=== PATIENT | female | born 1985 | race American Indian/Alaskan Native ===

== ENCOUNTER 2018-12-12 09:42 | Inpatient (IN) | payer MEDICAID ==
[2018-12-12 12:32] LABS: Basophils % (Auto) 0.2 % (0.0-1.8); Eosinophils % (Auto) 0.6 % (0.0-4.3); Hematocrit 32.9 % (30.3-42.9); Lymphocytes # (Auto) 1.7 K/mm3 (1.2-5.4); Lymphocytes % (Auto) 23.5 % (13.4-35.0); Mean Corpuscular HGB Conc 34 % (30-34); Mean Corpuscular Volume 84 fl (79-97); Monocytes # (Auto) 0.5 K/mm3 (0.0-0.8); Monocytes % (Auto) 6.5 % (0.0-7.3); Platelet Count 225 K/mm3 (140-440); Red Blood Count 3.92 M/mm3 (3.65-5.03); Red Cell Distribution Width 15.2 % (13.2-15.2)
[2018-12-12] MEDS ORDERED: LACTATED RINGERS 1,000 ML ONE (12:32)
[2018-12-12] MEDS ORDERED: NARCAN 2 MG/2 ML IV PRN (13:14)
--- NOTE | 2018-12-12 13:17 | Anesthesia Consultation ---
Anesthesia Consult and Med Hx - Airway Anesthetic Teeth Evaluation: Good ROM Head & Neck: Adequate Mental/Hyoid Distance: Adequate Mallampati Class: Class II Intubation Access Assessment: Probably Good - Pulmonary Exam CTA: Yes - Cardiac Exam Cardiac Exam: RRR - Pre-Operative Health Status ASA Pre-Surgery Classification: ASA2 Proposed Anesthetic Plan: Epidural - Pulmonary Hx Smoking: No Hx Asthma: Yes Hx Respiratory Symptoms: Yes SOB: Yes COPD: No Home Oxygen Therapy: No Hx Pneumonia: No Hx Sleep Apnea: No - Cardiovascular System Hx Hypertension: No - Central Nervous System Hx Seizures: No Hx Psychiatric Problems: No - Endocrine Hx Renal Disease: No Hx Hypothyroidism: No Hx Hyperthyroidism: No - Hematic Hx Anemia: No Hx Sickle Cell Disease: No - Other Systems Hx Alcohol Use: No
--- NOTE | 2018-12-12 13:18 | Anesthesia Day of Surgery ---
Anesthesia Day of Surgery - Day of Surgery Patient Examined: Yes Patient H&P Reviewed: Yes Patient is NPO: Yes Beta Blockers: No Cardiac Clearance: No Pulmonary Clearance: No Ahmet's Test: N/A
[2018-12-12] MEDS ORDERED: LACTATED RINGERS 2,000 ML ONE (13:26)
[2018-12-12] MEDS ORDERED: fentaNYL-BUPIV 2 MCG/ML-0.125% 200 MCG/100 ML BAG EPIDURAL SCH (14:00)
[2018-12-12] MEDS ORDERED: XYLOCAINE 2%/ EPI 1:200,000 INFILTRATI ONE (14:05)
[2018-12-12] MEDS ORDERED: MINERAL OIL PO PRN (17:06)
[2018-12-12] MEDS ORDERED: BRETHINE SUB-Q PRN (17:06)
[2018-12-12] MEDS ORDERED: BRETHINE IVP PRN (17:06)
[2018-12-12] MEDS ORDERED: ZOFRAN ONE (17:43)
--- NOTE | 2018-12-12 17:48 | History and Physical Report ---
History of Present Illness Date of examination: 12/12/18 (17:37) Date of admission: 12/12/18 09:43 Chief complaint: Contractions History of present illness: 33yo AA Fe JESSEE 12/20/2018 (US), 38w6d, presents with c/o contractions. Initial vaginal exam 4 cm per tannery gummer. After walking, cervical change to 6 cm. Pt received limited care with late care initiated at [facility] at 33w5d. Pt denies any significant medical history. B positive, Rubella Immune, VDRL non-reactive, HBsAg Negative, HIV Negative, GBS Negative. 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 denies: smoking, alcohol abuse, prescription drug abuse, IV drug use - Obstetrical History Expected Date of Delivery: 12/20/18 Actual Gestation: 38 Week(s) 6 Day(s) : 5 Para: 4 Hx # Term Pregnancies: 4 Number of Pregnancies: 0 Spontaneous Abortions: 0 Induced : 0 Number of Living Children: 4 #1 Infant Gender: Female year: , Method of Delivery: Vaginal Gestational age at delivery: 40 Complications: none #2 Gender: Female year: ,009 Method of Delivery: Vaginal Gestational age at delivery: 40 Complications: none #3 Gender: Female year: ,012 Method of Delivery: Vaginal Gestational age at delivery: 39 Complications: none #4 Infant Gender: Female year: ,015 Method of Delivery: Vaginal Gestational age at delivery: 39 Complications: none Medications and Allergies Allergies Allergy/AdvReac Type Severity Reaction Status Date / Time amoxicillin [Amoxicillin] Allergy Rash Verified 10/22/18 13:25 Home Medications Medication Instructions Recorded Confirmed Last Taken Type Vit-Fe Fumar-FA [ 1 tab PO QDAY #30 tablet 10/22/18 12/08/18 12/08/18 10:00 Rx Vitamin] Active Meds: Active Medications Ephedrine Sulfate (Ephedrine Sulfate) 10 mg IV Q2M PRN PRN Reason: Hypotension Fentanyl/Bupivacaine/Sodium Chlor (Fentanyl-Bupiv 2 Mcg/Ml-0.125%) 200 mcg in 100 mls @ 12 mls/hr EPIDURAL TITR YASMEEN; Protocol Last Admin: 12/12/18 14:23 Dose: 12 mls/hr Documented by: Lactated Ringer's (Lactated Ringers) 1,000 mls @ 125 mls/hr IV DIRECT YASMEEN Oxytocin/Sodium Chloride (Pitocin/Ns 20 Unit/1000ml Drip) 20 units in 1,000 mls @ 125 mls/hr IV DIRECT YASMEEN Oxytocin/Sodium Chloride (Pitocin/Ns 30 Unit/500ml) 30 units in 500 mls @ 1 mls/hr IV TITR YASMEEN; Protocol Mineral Oil (Mineral Oil) 30 ml PO QHS PRN PRN Reason: Constipation Naloxone HCl (Narcan 2 Mg/2 Ml) 0.2 mg IV Q5M PRN PRN Reason: Respiratory sedation Terbutaline Sulfate (Brethine) 0.25 mg SUB-Q ONCE PRN PRN Reason: Hyperstimulation/Hypertonicity Terbutaline Sulfate (Brethine) 0.25 mg IVP ONCE PRN PRN Reason: Hyperstimulation/Hypertonicity Review of Systems Eyes: normal appearance Cardiovascular: no chest pain, no shortness of breath Respiratory: no shortness of breath Breasts: normal Gastrointestinal: abdominal pain (Contractions), no nausea, no vomiting, no diarrhea Genitourinary: normal appearance, contractions, no leakage of fluid, no pelvic pain, no genital sores Integumentary: no rash, no sores, no lesions - Vital Signs Vital signs: Vital Signs Pulse BP 83 116/66 12/12/18 10:06 12/12/18 10:06 Temp Pulse Resp BP Pulse Ox 98.2 F 87 16 91/50 100 12/12/18 14:53 12/12/18 17:38 12/12/18 14:53 12/12/18 17:38 12/12/18 15:58 - Physical Exam Breasts: Positive: normal Cardiovascular: Regular rate, Normal S1, Normal S2, No murmurs Lungs: Positive: Clear to auscultation, Normal air movement Abdomen: Positive: normal appearance, soft, normal bowel sounds. Negative: distention Vulva: both: normal Vagina: Positive: normal moisture Uterus: Positive: enlarged (Gravid) Anus/Rectum: Positive: normal perianal skin Extremities: Positive: normal Deep Tendon Reflex Grade: Normal +2 - Obstetrical FHR: category 1 Uterine Contraction Monitor Mode: External Cervical Dilatation: 6 (AROM, lg amt light pink tinged fluid at 17:37) Cervical Effacement Percentage: 50 station: 0 Uterine Contraction Pattern: Irregular Uterine Tone Measurement Phase: Resting Uterine Contraction Intensity: Moderate Results Result Diagrams: 12/12/18 Unknown All other labs normal. Assessment and Plan A: , JESSEE 12/20/2018, 38w6d GBS Negative Category 1 tracing Comfortable with epidural Active Labor P: Routine labor orders Anticipate
[2018-12-12] MEDS ORDERED: ZOFRAN IV ONE (17:53)
[2018-12-12] MEDS ORDERED: LACTATED RINGERS 1,000 ML IV SCH (18:00)
[2018-12-12] MEDS ORDERED: PITOCin/NS 30 UNIT/500ML 30 UNITS/500 ML BAG IV SCH (18:00)
[2018-12-12] MEDS ORDERED: PITOCin/NS 20 UNIT/1000ML DRIP 20 UNITS/1,000 ML BAG IV SCH (18:00)
[2018-12-12] MEDS ORDERED: TYLENOL PO PRN (19:26)
[2018-12-12] MEDS ORDERED: PHENERGAN PO PRN (19:26)
[2018-12-12] MEDS ORDERED: ZOFRAN IV PRN (19:26)
[2018-12-12] MEDS ORDERED: MILK OF MAGNESIA PO PRN (19:26)
[2018-12-12] MEDS ORDERED: NORCO 5/325 PO PRN (19:26)
[2018-12-12] MEDS ORDERED: DULCOLAX PR PRN (19:26)
[2018-12-12] MEDS ORDERED: BENADRYL PO PRN (19:26)
--- NOTE | 2018-12-12 19:33 | Procedure Note ---
OB Delivery Note - Delivery Date of Delivery: 12/12/18 (19:15) Surgeon: BEATRICE MCCLAIN (KIMMY) Estimated blood loss: 100cc - Vaginal Delivery presentation: vertex Delivery position: OA Intrapartum events: none Delivery induction: none Delivery augmentation: rupture of membranes, pitocin Delivery monitor: external FHT, external uterine Route of delivery: (19:15) Delivery placenta: spontaneous (19:20) Delivery cord: 3 umbilical vessels Episiotomy: none Delivery laceration: none Anesthesia: epidural Delivery comments: With good maternal pushing efforts, viable female infant, CLAUDY position, over intact perineum at 19:15. Strong lusty cry noted. Infant dried, cord double clamped then cut at 2 min of age per pt request of pt to "not place on her abdomen until infant is cleaned." then to pre-warmed RW. Spontaneous arellano delivery of intact placenta at 19:20. 3VC. FF@U-2. bleeding small. No tears or lacerations. Infant and mother left in stable condition in L&D. EBL 100cc. - Infant A at 1 minute: 8 at 5 minutes: 9 Gender: Female (3514grams, 7lbs 12oz, 18.5")
[2018-12-12] MEDS ORDERED: SODIUM CHLORIDE FLUSH SYRINGE 10 ML IV NR (20:00)
[2018-12-12] MEDS: IBUPROFEN PO SCH (21:10)
[2018-12-13] MEDS: IBUPROFEN PO SCH ×3 (03:03→22:20)
[2018-12-13 07:49] LABS: Hematocrit 29.9 % (30.3-42.9); Hemoglobin 9.8 gm/dl (10.1-14.3)
--- NOTE | 2018-12-13 10:23 | Progress Note ---
Assessment and Plan - Patient Problems (1) Status post normal vaginal delivery Current Visit: Yes Status: Acute Plan to address problem: PPD 1 - stable Continue routine PP orders Discharge to home 12/14/18 Follow up at [facility] in 6 weeks for exam (2) Anemia due to blood loss, acute Current Visit: Yes Status: Acute Plan to address problem: Asymptomatic Iron therapy initiated with Ferrous sulfate 325mg PO QDAY (3) Encounter for other general counseling and advice on contraception Current Visit: Yes Status: Acute Plan to address problem: Counseling on all options of contraception provided Patient prefers depo provera Subjective - Subjective Date of service: 12/13/18 Principal diagnosis: PPD #1; s/p Interval history: See H&P and OB Delivery Procedure Note Patient reports: appetite normal, voiding normally, pain well controlled, ambulating normally, no bowel movement, no nauseated [place]: doing well, bottle feeding Objective - Vital Signs Latest vital signs: Vital Signs Temp Pulse Resp BP Pulse Ox 12/13/18 07:33 98.4 F 76 18 97/60 98 12/13/18 02:51 97.8 F 69 20 106/57 99 12/12/18 21:53 98.5 F 85 20 115/61 97 12/12/18 20:30 98.2 F 12/12/18 20:08 91 H 119/58 12/12/18 19:53 96 H 108/56 12/12/18 19:38 106 H 116/55 12/12/18 19:25 98.3 F 12/12/18 19:23 101 H 111/59 12/12/18 19:09 130 H 107/64 12/12/18 18:54 130 H 128/59 12/12/18 18:39 88 104/59 12/12/18 18:25 86 109/58 12/12/18 18:09 92 H 99/56 12/12/18 17:53 102 H 96/57 12/12/18 17:38 87 91/50 12/12/18 17:23 81 97/52 12/12/18 17:08 82 90/52 12/12/18 16:53 95 H 89/52 12/12/18 16:38 90 94/56 12/12/18 16:23 90 92/55 12/12/18 16:08 83 91/54 12/12/18 15:58 94 H 100 12/12/18 15:53 82 91/53 98 12/12/18 15:48 81 99 12/12/18 15:43 80 97 12/12/18 15:38 81 89/51 95 12/12/18 15:33 84 97 12/12/18 15:28 83 97 12/12/18 15:24 85 93/52 12/12/18 15:23 87 97 12/12/18 15:18 101 H 95 12/12/18 15:15 106 H 120/53 12/12/18 15:13 102 H 96 12/12/18 15:08 87 97 12/12/18 15:03 83 98 12/12/18 14:58 89 98 12/12/18 14:54 88 78/46 12/12/18 14:53 98.2 F 96 H 16 98 12/12/18 14:48 90 98 12/12/18 14:43 91 H 98 12/12/18 14:39 90 81/52 12/12/18 14:38 94 H 89/54 98 12/12/18 14:33 79 97 12/12/18 14:32 75 99/57 12/12/18 14:23 102 H 106/59 12/12/18 14:19 108 H 107/67 12/12/18 14:18 90 90 12/12/18 14:16 86 100 12/12/18 14:11 99 H 113/68 100 12/12/18 14:10 101 H 92 12/12/18 14:06 89 99 12/12/18 14:04 99 H 109/65 12/12/18 14:01 89 102/63 53 L 12/12/18 10:23 97.9 F 16 Intake and Output 12/12/18 12/13/18 12/13/18 23:59 07:59 15:59 Intake Total 200 500 120 Output Total 550 500 400 Balance -350 0 -280 Intake: Oral 200 500 120 Output: Urine 550 500 400 Indwelling Catheter 550 500 400 Other: Total, Intake Amount 200 200 120 Total, Output Amount 300 500 400 Estimated Blood Loss 100 - Exam Cardiovascular: Present: Regular rate Lungs: Present: Clear to auscultation Abdomen: Present: normal appearance, soft Vulva: both: normal Uterus: Present: normal, firm, fundal height at umbilicus Extremities: Present: normal Comments: scant lochia - Labs Labs: Abnormal lab results 12/13/18 Range/Units 07:28 Hgb 9.8 L (10.1-14.3) gm/dl Hct 29.9 L (30.3-42.9) %
--- NOTE | 2018-12-13 10:33 | Discharge Summary ---
Providers - Providers Date of Admission: 12/12/18 09:43 Date of discharge: 12/14/18 Attending physician: JOSEY LOYD Primary care physician: JOSEY LOYD Hospitalization Reason for admission: active labor, IUP at term Delivery: Episiotomy: none Laceration: none Other procedures: none complications: none Discharge diagnosis: IUP at term delivered [place] baby: female Hospital course: Uncomplicated Condition at discharge: Stable Disposition: [id number] TO HOME OR SELFCARE - Discharge Diagnoses (1) Status post normal vaginal delivery Status: Acute (2) Anemia due to blood loss, acute Status: Acute Comment: Asymptomatic Continue iron therapy (3) Encounter for other general counseling and advice on contraception Status: Acute Comment: Depo provera initiated 12/14/18. Next injection due in 12 weeks Plan - Discharge Medications Prescriptions: Ferrous Sulfate [Feosol 325 MG tab] 325 mg PO QDAY #30 tablet - Provider Discharge Summary Activity: routine, no sex for 6 weeks, no heavy lifting 4 weeks, no strenuous exercise Diet: routine Instructions: routine Additional instructions: [] Smoking cessation referral if applicable(refer to patient education folder for contact #) [] Refer to [facility] Booklet Call your doctor immediately for: * Fever > 100.5 * Heavy vaginal bleeding ( >1 pad per hour) * Severe persistent headache * Shortness of breath * Reddened, hot, painful area to leg or breast * Drainage or odor from incision. * Keep incision clean and dry at all times and follow doctor's instructions regarding bathing/showering - Follow up plan Follow up: JOSEY LOYD [Primary Care Provider] - 6 Weeks (Follow up at [facility] in 6 weeks for exam)
[2018-12-13] MEDS: FEOSOL PO SCH (11:01)
[2018-12-14] MEDS: IBUPROFEN PO SCH ×2 (06:08→11:15)
[2018-12-14] MEDS ORDERED: DEPO-PROVERA (CONTRACEPTION) IM NR (10:00)
[2018-12-14] MEDS: FEOSOL PO SCH (11:15)
[2018-12-14 17:04] VITALS: BP 114/73
== END 2018-12-14 16:15 | disposition home or self-care (01) | DRG 775 ==
LOC: TRG 09:42 → LD 09:43 → TRG 12:16 → OB 20:45
PROVIDERS: ADMIT Obstetrics & Gynecology; ATTEND Obstetrics & Gynecology
PROC: 10E0XZZ Delivery of Products of Conception, External Approach (ICD-10-PCS; principal; 2018-12-12)
PROC: 3E0R3BZ Introduction of Anesthetic Agent into Spinal Canal, Percutaneous Approach (ICD-10-PCS; 2018-12-12)
PROC: 00HU33Z Insertion of Infusion Device into Spinal Canal, Percutaneous Approach (ICD-10-PCS; 2018-12-12)
DX: O99.52 Diseases of the respiratory system complicating childbirth (principal); Z3A.38 38 weeks gestation of pregnancy; Z37.0 Single live birth; Z88.8 Allergy status to other drugs, medicaments and biological substances; J45.909 Unspecified asthma, uncomplicated; O99.02 Anemia complicating childbirth; D62 Acute posthemorrhagic anemia
CPT/HCPCS: 36415; 85014; 85018; 85025; 86850; 86900; 86901; G0378; J1050; J2405; J2590; J7120

== ENCOUNTER 2019-05-09 18:09 | Emergency (ER) | payer OTHER ==
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
[2019-05-10 00:17] VITALS: BP 105/60
== END 2019-05-09 23:40 | disposition home or self-care (01) ==
LOC: ED 18:09
DX: S16.1XXA Strain of muscle, fascia and tendon at neck level, initial encounter (principal); M54.5 Low back pain; I50.9 Heart failure, unspecified; J45.909 Unspecified asthma, uncomplicated; Z79.899 Other long term (current) drug therapy; Z88.1 Allergy status to other antibiotic agents; V89.2XXA Person injured in unspecified motor-vehicle accident, traffic, initial encounter; Y93.89 Activity, other specified; Y92.410 Unspecified street and highway as the place of occurrence of the external cause; Y99.8 Other external cause status
CPT/HCPCS: 99282